=== PATIENT | female | born 2000 | race Caucasian/White ===

== ENCOUNTER 2020-03-22 08:34 | Emergency (ER) | payer OTHER ==
[~2020-03-22] VITALS: Ht 149.9 cm; Wt 63.6 kg
[2020-03-22] MEDS ORDERED: NAPR250T4 PO (08:44)
[2020-03-22] MEDS ORDERED: LIDOCAINE 5% TRANSDERMAL PATCH TD ONE (11:15)
[2020-03-22 11:22] VITALS: BP 115/69
== END 2020-03-22 11:44 | disposition home or self-care (01) ==
LOC: EMS 09:31
DX: R07.81 Pleurodynia (principal); F17.210 Nicotine dependence, cigarettes, uncomplicated; Z88.8 Allergy status to other drugs, medicaments and biological substances
CPT/HCPCS: 71101